=== PATIENT | female | born 1985 | race Caucasian/White ===

== ENCOUNTER → 2018-12-26 | Outpatient (CLI) | payer OTHER | LOC: COL.RAD 10:21 | DX: M51.26 Other intervertebral disc displacement, lumbar region (principal); M43.17 Spondylolisthesis, lumbosacral region ==

== ENCOUNTER 2019-01-15 06:09 | Day surgery (SDC) | payer OTHER ==
[~2019-01-15] VITALS: Ht 172.7 cm; Wt 61.4 kg
[2019-01-15 06:23] VITALS: BP 111/82; PULSE 81; TEMP 98
[2019-01-15] MEDS ORDERED: ULTRAM 50MG TAB50 MG PO (06:48)
[2019-01-15] MEDS ORDERED: CELEBREX 1100 MG/CAP PO (06:48)
[2019-01-15] MEDS ORDERED: NEURONTIN300 MG/CAP PO (06:49)
[2019-01-15] MEDS ORDERED: MULTI VITAMINS1 TAB PO (06:50)
[2019-01-15] MEDS ORDERED: VITAMIN C500 MG PO (06:51)
[2019-01-15] MEDS ORDERED: HAIRSKINNAILS PO (06:51)
[2019-01-15 07:50] VITALS: BP 107/80; PULSE 79
--- NOTE | 2019-01-15 07:50 | NUR ---
Patient returns to [facility] per cart and is able to transfer from cart to recliner with one person assist. Temp 97.9 and room air sats 98%. Denies abdominal pain or nausea. IV fluids infusing. Call light in reach.
--- NOTE | 2019-01-15 08:00 | NUR ---
Dr. Mallory in to talk with the patient and all questions answered.
[2019-01-15 08:05] VITALS: BP 115/90; PULSE 73
--- NOTE | 2019-01-15 08:05 | NUR ---
Eating applesauce. Continues to deny abdominal pain or nausea.
--- NOTE | 2019-01-15 08:10 | NUR ---
IV discontinued and patient dresses self.
--- NOTE | 2019-01-15 08:20 | NUR ---
Given dismissal instructions and voices understanding of these. Spouse enroute to pick her up.
--- NOTE | 2019-01-15 08:33 | NUR ---
Patient taken per wheelchair to the patient entrance and assisted into vehilce driven by spouse by Negrita MIRANDA.
== END 2019-01-15 08:33 | disposition home or self-care (01) ==
LOC: SDCO 06:09
DX: E75.5 Other lipid storage disorders (principal); K57.30 Diverticulosis of large intestine without perforation or abscess without bleeding; K62.89 Other specified diseases of anus and rectum; R19.7 Diarrhea, unspecified; K29.30 Chronic superficial gastritis without bleeding; K31.7 Polyp of stomach and duodenum; M19.90 Unspecified osteoarthritis, unspecified site; G89.29 Other chronic pain; M54.9 Dorsalgia, unspecified; M25.559 Pain in unspecified hip; Z90.49 Acquired absence of other specified parts of digestive tract; Z83.79 Family history of other diseases of the digestive system
CPT/HCPCS: J2704; J3010; J7030

== ENCOUNTER → 2019-02-04 | Outpatient (CLI) | payer OTHER ==
[~2019-02-04] MED LIST: CELEBREX 1100 MG/CAP PO; HAIRSKINNAILS PO; MULTI VITAMINS1 TAB PO; NEURONTIN300 MG/CAP PO; ULTRAM 50MG TAB50 MG PO; VITAMIN C500 MG PO
== END ==
LOC: MHCPAIN 09:02
DX: G89.29 Other chronic pain (principal); M47.817 Spondylosis without myelopathy or radiculopathy, lumbosacral region; M54.16 Radiculopathy, lumbar region; M53.3 Sacrococcygeal disorders, not elsewhere classified
CPT/HCPCS: G0463

== ENCOUNTER → 2019-02-10 | Outpatient (CLI) | payer OTHER | LOC: MHCPAIN 12:47 | DX: M47.817 Spondylosis without myelopathy or radiculopathy, lumbosacral region (principal); M54.16 Radiculopathy, lumbar region | CPT/HCPCS: J1100; Q9967 ==

== ENCOUNTER 2019-02-13 16:00 | Outpatient (RCR) | payer OTHER | END 2019-02-25 12:16 | disposition home or self-care (01) | LOC: WSPT 16:00 | DX: M51.26 Other intervertebral disc displacement, lumbar region (principal) ==

== ENCOUNTER → 2019-03-31 | Outpatient (CLI) | payer OTHER | LOC: COL.RAD 14:36 | DX: M43.17 Spondylolisthesis, lumbosacral region (principal); M51.17 Intervertebral disc disorders with radiculopathy, lumbosacral region; Z98.1 Arthrodesis status ==

== ENCOUNTER → 2019-05-05 | Outpatient (CLI) | payer OTHER | LOC: COL.RAD 11:53 | DX: M43.17 Spondylolisthesis, lumbosacral region (principal); M51.17 Intervertebral disc disorders with radiculopathy, lumbosacral region; R19.09 Other intra-abdominal and pelvic swelling, mass and lump; M46.96 Unspecified inflammatory spondylopathy, lumbar region; Z98.1 Arthrodesis status ==